=== PATIENT | female | born 1940 | race Caucasian/White ===

== ENCOUNTER 2017-12-11 13:15 | Inpatient (IN) | payer OTHER ==
[2017-12-11] VITALS (7 sets, daily range): BP systolic 97–155; BP diastolic 36–79
[~2017-12-11] VITALS: Ht 165.1 cm; Wt 68.5 kg
[~2017-12-11 13:15] MED LIST: ALLOPURINOL 10100 M1 PO; AMITRIPTYLINE H25 M2 PO; CALCIUM 500 +1 EAC5 PO; CARDIZEM CD180 MG PO; CHILDREN'S ASPI81 M1 PO; DIGOXIN125 MCG PO; FORTEO750 MCG/3 SUBQ; GLUCAGEN1 M2 IM; HYDROCHLOROTHIA25 M2 PO; HYDROCODON-ACE1 EAC8 PO; IRON325 PO; LEVEMIR SUBQ; LISINOPRIL20 MG PO; LOVASTATIN 20 M20 MG PO; MAGOX 400400 MG PO; MELATONIN1 MG PO; METFORMIN HCL500 MG PO; MULTIVITAMINS1 EAC7 PO; NEURONTIN600 MG PO; NEXIUM40 MG PO; NOVOLOG100 UNIT/1 SUBQ; SENNA8.6 MG PO; SYNTHROID125 MC1 PO; TYLENOL325 MG PO; VANCOMYCIN125 MG/2.1 PO; VITAMIN D1000 UNI1 PO; ZOFRAN ODT4 M1 PO
[2017-12-11 13:43] LABS: ABSOLUTE LYMPHOCYTES 0.9 thou/uL (0.8-5.3); ABSOLUTE MONOCYTES 0.7 thou/uL (0.0-1.2); ABSOLUTE NEUTROPHILS 3.3 thou/uL (1.6-8.1); HEMOGLOBIN 9.6 gm/dL (12.0-15.0); LYMPHOCYTES 18.5 %; MCH 30.8 pg (26.0-34.0); MCHC 33.1 g/dL (28.0-37.0); MCV 93.2 fL (80.0-100.0); MONOCYTES 13.2 %; NUCLEATED RBCS 0 /100WBC; PLATELET COUNT* 298 thou/uL (150-400); POLYS 66.3 %; RBC 3.11 mil/uL (4.20-5.00); RDW-CV 16.7 % (10.5-14.5); WBC 4.9 thou/uL (4.0-11.0)
[2017-12-11 13:57] LABS: APTT 43.4 Seconds (25.0-31.3); PROTIME 45.5 Seconds (9.20-11.50)
[2017-12-11 13:58] LABS: INR 4.8
[2017-12-11 14:01] LABS: ANION GAP 7 mmol/L (7-16); BUN 24 mg/dL (7-18); CALCIUM 8.2 mg/dL (8.5-10.1); CHLORIDE 101 mmol/L (98-107); CO2 27 mmol/L (21-32); CREATININE 1.6 mg/dL (0.6-1.3); GLUCOSE 150 mg/dL (70-99); POTASSIUM 4.9 mmol/L (3.5-5.1); SODIUM 135 mmol/L (136-145)
[2017-12-11] MEDS ORDERED: CARTIA XT180 M1 PO (14:02)
[2017-12-11] MEDS ORDERED: LISINOPRIL-HCT1 EAC2 PO (14:02)
[2017-12-11] MEDS ORDERED: COUMADIN 5 MG TA5 M1 PO (14:03)
[2017-12-11] MEDS ORDERED: PERCOCET 10-321 EACH PO (14:03)
[2017-12-11] MEDS ORDERED: TOPROL XL25 MG PO (14:03)
[2017-12-11] MEDS ORDERED: IRON325 PO (14:04)
[2017-12-11 14:09] LABS: ALBUMIN 3.1 g/dL (3.4-5.0); ALKALINE PHOSPHATASE 102 U/L (46-116); NT-PRO BRAIN NAT PEPTIDE 909 pg/mL (<300); SGOT 21 U/L (15-37); SGPT 16 U/L (30-65); TOTAL BILIRUBIN 0.3 mg/dL (<0.1-1.0); TOTAL PROTEIN 7.3 g/dL (6.4-8.2); TROPONIN-I LEVEL <0.06 ng/mL (<0.06)
--- NOTE | 2017-12-11 17:39 | EKG ---
[place] [address] ELECTROCARDIOGRAM REPORT Name: GAURANG RIVERA Room: [address] IN [facility]#: [id number] Admission: 12/11/17 Attend Phys: Jose Alfredo Blackburn MD Discharge: Date of : 44 Report #: [id number] THIS REPORT FOR: //name// [facility] ED Test Date: 2017-12-11 Test Time: 13:28:10 Pat Name: GAURANG RIVERA Department: Room: [facility] Gender: F O[employer]vester: [place] : 1940 Requested By: Luba Dudley Order Number: [id number] MD: Ian Calvillo Measurements Intervals [place] Rate: 43 P: 101 ME: 190 QRS: 79 QRSD: 102 T: 63 QT: 457 QTc: 387 Interpretive Statements Sinus bradycardia Atrial premature complex Anteroseptal infarct, age indeterminate No previous ECG available for comparison Electronically Signed On 12-11-2017 17:39:39 CDT by Ian Calvillo [email or web address] <ELECTRONICALLY SIGNED> By: Ian Calvillo MD, [facility] 12/11/17 1739 1328 1328 Ian Calvillo MD, [facility] /EPI
--- NOTE | 2017-12-11 17:40 | EKG ---
[place] [address] ELECTROCARDIOGRAM REPORT Name: GAURANG RIVERA Room: [address] IN [facility]#: [id number] Admission: 12/11/17 Attend Phys: Jose Alfredo Blackburn MD Discharge: Date of : 44 Report #: [id number] THIS REPORT FOR: //name// [facility] ED Test Date: 2017-12-11 Test Time: 14:07:45 Pat Name: GAURANG RIVERA Department: Room: [facility] Gender: F Assistant Administrator: [place] : 1940 Requested By: Myrna Ceja Order Number: [id number] MD: Ian Calvillo Measurements Intervals [place] Rate: 41 P: 91 CO: 186 QRS: 89 QRSD: 103 T: 77 QT: 469 QTc: 388 Interpretive Statements Sinus bradycardia Borderline right axis deviation Probable left ventricular hypertrophy Baseline wander in lead(s) V3 Electronically Signed On 12-11-2017 17:40:02 CDT by Ian Calvillo [email or web address] <ELECTRONICALLY SIGNED> By: Ian Calvillo MD, [facility] 12/11/17 1740 1407 140 Ian Calvillo MD, [facility] /EPI
[2017-12-12] VITALS (9 sets, daily range): BP systolic 150–183; BP diastolic 43–84
[2017-12-12 07:56] LABS: ABSOLUTE EOSINOPHILS 0.1 thou/uL (0.0-0.7); ABSOLUTE LYMPHOCYTES 0.8 thou/uL (0.8-5.3); ABSOLUTE MONOCYTES 0.6 thou/uL (0.0-1.2); ABSOLUTE NEUTROPHILS 3.6 thou/uL (1.6-8.1); BASOPHILS 0.9 %; EOSINOPHILS 1.1 %; HEMATOCRIT 30.9 % (37.0-47.0); HEMOGLOBIN 10.1 gm/dL (12.0-15.0); LYMPHOCYTES 15.5 %; MCH 30.2 pg (26.0-34.0); MCHC 32.7 g/dL (28.0-37.0); MCV 92.5 fL (80.0-100.0); MONOCYTES 11.3 %; MPV 7.4 fl. (7.2-11.1); NUCLEATED RBCS 0 /100WBC; PLATELET COUNT* 320 thou/uL (150-400); POLYS 71.2 %; RBC 3.34 mil/uL (4.20-5.00); RDW-CV 16.6 % (10.5-14.5)
[2017-12-12 07:58] LABS: CALCIUM 8.6 mg/dL (8.5-10.1); CREATININE 1.3 mg/dL (0.6-1.3); POTASSIUM 4.6 mmol/L (3.5-5.1)
[2017-12-12 07:59] LABS: PROTIME 12.7 Seconds (9.20-11.50)
[2017-12-12 08:32] LABS: INR 1.3
[2017-12-13] VITALS: BP 160/71
[2017-12-13 04:00] VITALS: BP 173/86
[2017-12-13 08:00] VITALS: BP 132/89
[2017-12-13 11:21] VITALS: BP 132/89
[2017-12-13 12:12] VITALS: BP 127/79
[2017-12-13] MEDS ORDERED: COUMADIN 2.5MG2.5 M1 PO (12:22)
[2017-12-13] MEDS ORDERED: MINOCYCLINE HC100 M2 PO (12:24)
[2017-12-13 12:26] VITALS: BP 132/89
--- NOTE | 2017-12-24 12:52 | CON ---
[address] [address] CONSULTATION Name: GAURANG RIVERA Room: [address] IN ..#: [id number] Admission: 12/11/17 Attend Phys: Jose Alfredo Blackburn MD Discharge: 12/13/17 Date of : 44 Report #: [id number] THIS REPORT FOR: //name// CC: Miranda Blackburn DATE OF SERVICE: 12/11/2017 CHIEF COMPLAINT: Weakness, fatigue, shortness of breath. HISTORY OF PRESENT ILLNESS: The patient is a 77-year-old female who has a history of atrial arrhythmia, who presented on the way to her doctor's office with significant shortness of breath and fatigue and was referred to the Emergency Department when her heart rate was noted to be in the low 30s. She presents in marked sinus bradycardia with some listlessness and significant shortness of breath, but no loss of consciousness. She is on aggressive medical therapy for her atrial arrhythmias. Clinically, she denies syncope or presyncope. In regards to atrial fibrillation, she had not really been bothered much in the way of palpitations, heart racing or skipping. She sees a production team leader at [place] every 6 months or so, but had been doing relatively well. Most of her medical problems have been centered around her chronic anemia requiring frequent blood transfusions. PAST MEDICAL HISTORY: Significant for osteoarthritis, atrial fibrillation, hypertension, type 2 diabetes, chronic warfarin anticoagulation. PAST SURGICAL HISTORY: Bilateral knee replacement, prior gallbladder draining and anemia. HOME MEDICATIONS: Include insulin, digoxin 0.125 mg daily, Cardizem 180 mg p.o. b.i.d., aspirin 81 mg daily, allopurinol, amitriptyline 25 mg daily, lisinopril 20 mg daily, HCTZ 25 mg daily, lovastatin 20 mg at bedtime, multivitamin, Nexium 20 mg daily. ALLERGIES: SHE HAS ALLERGIES TO BACLOFEN. SOCIAL HISTORY: She is a social drinker. REVIEW OF SYSTEMS: CONSTITUTIONAL: Denies fevers or chills. GASTROINTESTINAL: No hematemesis or melena. HEMATOLOGIC: Positive anemia. GASTROINTESTINAL: No abdominal pain, nausea, [place] [address] CONSULTATION Name: GAURANG RIVERA Room: [address]#: [id number] Admission: 12/11/17 Attend Phys: Jose Alfredo Blackburn MD Discharge: 12/13/17 Date of : 44 Report #: [id number] MUSCULOSKELETAL: No back pain. SKIN: No rashes. NEUROLOGIC: Denies numbness, weakness or slurred speech. Positive fatigue. PULMONARY: Positive shortness of breath. PHYSICAL EXAMINATION: VITAL SIGNS: On presentation, blood pressure is 110/36, pulse ox is 99%, pulse was 31. GENERAL: Pleasant, thin elderly female. She is alert, no apparent distress. NECK: Supple. No jugular venous distention. CARDIOVASCULAR: Regular. I cannot hear a murmur. LUNGS: Clear to auscultation. ABDOMEN: Nontender, nondistended. EXTREMITIES: No peripheral edema. SKIN: Warm and dry. PSYCHIATRIC: The patient has appropriate mood and affect. LABORATORY DATA: Sodium is 135, potassium is 4.9, chloride is 101, CO2 is 27, BUN is 24, creatinine is 1.6, glucose 150, AST 21, albumin is 3.1. Troponin I is 0.06. ProBNP is 909. INR is 4.8. Hemoglobin is 9.6, platelet count is 298,000. Digoxin level is 0.4. ECG demonstrates a marked sinus bradycardia, first-degree AV block, heart rate 33. IMPRESSION: 1. Bradycardia. She is quite symptomatic and has an underlying history of atrial arrhythmias and probably some degree of sick sinus syndrome. Her blood pressure is somewhat tenuous and she will likely need a temporary pacemaker, but first she will need a reversal agent for her warfarin therapy. 2. Coagulopathy. We will hold her warfarin in anticipation of a temporary pacemaker while she gets vitamin K. 3. Atrial fibrillation. We will hold her AV anderson acting agents for the time being. 4. Hypertension. This is stable. 5. Anemia. Apparently, this is chronic. We will obtain records from her primary doctor. Start time critical care, 02:30; finished time, 03:02 <ELECTRONICALLY SIGNED> By: Jose Alfredo Blackburn MD, FACC 12/24/17 1252 1502 [id number] Alfredo Blackburn MD, FACC /nt
--- NOTE | 2018-01-09 09:13 | CARD ---
[address] [address] CARDIAC CATH REPORT Name: GAURANG RIVERA Room: [address] IN [facility]#: [id number] Admission: 12/11/17 Attend Phys: Jose Alfredo Blackburn MD Discharge: 12/13/17 Date of : 44 Report #: [id number] THIS REPORT FOR: //name// CC: Miranda Blackburn DATE OF SERVICE: 12/11/2017 PROCEDURE PERFORMED: Temporary venous pacemaker. INDICATIONS: The patient presented with symptomatic bradycardia with heart rates in the 30s to the Emergency Room. She has a known history of persistent atrial fibrillation. Her blood pressure was in the 90s systolic and she was hemodynamically unstable, so we took her to the cardiac catheterization lab for temporary venous pacemaker. CONSENT: The risks and benefits of the procedure were described to patient in lay terms. The patient elected to proceed. DESCRIPTION OF PROCEDURE: The patient was prepped and draped in usual sterile manner. A 1% lidocaine was utilized for local anesthesia to the right groin. Utilizing the Seldinger technique, the femoral vein on the right side was accessed and venous flow was noted. Over a short wire, a 6-Congolese sheath was advanced in the right femoral vein. Through this sheath, a temporary venous pacemaker was inserted and under fluoroscopic guidance, was cannulated to the right ventricle. The patient was hooked up to the temporary pacemaker device. Thresholds were tested. Sheath and wire were sutured in, and the patient was transferred to the ICU in stable condition. IMPRESSION: 1. Atrial fibrillation. 2. Sick sinus syndrome. 3. Bradycardia, symptomatic. The patient had been on aggressive medical therapies, which have been held for the time being to determine whether or not she will need a permanent pacemaker. <ELECTRONICALLY SIGNED> By: Jose Alfredo Blackburn MD, FACC 01/09/18 0913 1019 [id number] Alfredo Blackburn MD, FACC /nt
--- NOTE | 2018-01-22 11:32 | CARD ---
[address] [address] CARDIAC CATH REPORT Name: GAURANG RIVERA Room: [address] IN [facility]#: [id number] Admission: 12/11/17 Attend Phys: Jose Alfredo Blackburn MD Discharge: 12/13/17 Date of : 44 Report #: [id number] THIS REPORT FOR: //name// APPROVED REPORT Study performed: 12/11/2017 15:17:27 Patient Status: In-Patient Room #: 2 Event Personnel: Jose Alfredo Blackburn Insolvency Practitioner, Latisha Watson RN Supply Chain Specialist, Soraida Erazo RTR Monitor, Carlos Alberto Hurley (R) Scrub The patient is a 77 year-old female with a history of . Conscious Sedation Start time: 16:01 End Time: 16:17 Fentanyl 25 mcg Versed 1 mg Implanted Devices: temp pacing wire via r femoral vein Procedure The patient underwent informed consent. We discussed the details of the procedure including the risks, which include, but not limited to bleeding, infection, vascular damage, cardiac perforation, and pneumothorax. She understood these risks and was willing to proceed. As such, she was brought to the EP/Cardiac Catheterization laboratory in a fasting and sedated state and prepped and draped in a The patient underwent conscious sedation, with no related complications. Sheaths were positions using the modified Seldinger technique Through the introducer sheaths the ventricular lead wire was positioned in the right atrial appendage and right ventricular apex respectively. Capturing and sensing thresholds were verified. Complications The patient tolerated the procedure well and there were no complications associated with the procedure. Findings Specimens Removed: No Estimated Blood Loss: 5[place] [address] CARDIAC CATH REPORT Name: RIVERAGAURANG Room: [address]#: [id number] Admission: 12/11/17 Attend Phys: Jose Alfredo Blackburn MD Discharge: 12/13/17 Date of : 44 Report #: [id number] 1. syncope 2. bradycardia 3. temp pacing wire <ELECTRONICALLY SIGNED> By: Jose Alfredo Blackburn MD, [facility] 01/22/18 1132 1132 1132Jose Alfredo Blackburn MD, FAC /INF
== END 2017-12-13 15:07 | disposition home or self-care (01) | DRG 308 ==
LOC: M.ERS 13:15 → M.ICU 15:42 → M.TBA-CV 15:42 → M.ERS 15:42 → M.ICU 17:30 → M.2W 12-12 16:30
PROVIDERS: Internal Medicine; Nurse Practitioner Family; ADMIT Internal Medicine Cardiovascular Disease
PROC: 5A1223Z Performance of Cardiac Pacing, Continuous (ICD-10-PCS; principal; 2017-12-11)
DX: I49.5 Sick sinus syndrome (principal); L89.324 Pressure ulcer of left buttock, stage 4; L03.317 Cellulitis of buttock; N17.9 Acute kidney failure, unspecified; D68.9 Coagulation defect, unspecified; I48.91 Unspecified atrial fibrillation; I10 Essential (primary) hypertension; E78.5 Hyperlipidemia, unspecified; E11.9 Type 2 diabetes mellitus without complications; M19.90 Unspecified osteoarthritis, unspecified site; E03.9 Hypothyroidism, unspecified; Z96.653 Presence of artificial knee joint, bilateral; D64.9 Anemia, unspecified; Z96.641 Presence of right artificial hip joint; Z87.891 Personal history of nicotine dependence; Z87.81 Personal history of (healed) traumatic fracture; Z79.01 Long term (current) use of anticoagulants; Z79.84 Long term (current) use of oral hypoglycemic drugs; Z79.899 Other long term (current) drug therapy; Z88.8 Allergy status to other drugs, medicaments and biological substances; Z82.49 Family history of ischemic heart disease and other diseases of the circulatory system